=== PATIENT | female | born 1980 | race Two or more races ===

== ENCOUNTER → 2023-05-19 | Outpatient (CLI) | payer MEDICAID | END | disposition home or self-care (01) | LOC: LAB 08:37 | PROVIDERS: ATTEND Obstetrics & Gynecology | DX: N85.8 Other specified noninflammatory disorders of uterus (principal) ==

== ENCOUNTER → 2023-07-27 | Day surgery (SDC) | payer MEDICAID ==
[2023-07-26 11:54] LABS: Basophils # (auto) 0.1 10 ^3/uL (0-0.2); Eosinophils # (auto) 0.1 10 ^3/uL (0-0.8); Hematocrit 30.7 % (36.0-46.0); Hemoglobin 9.6 g/dL (12.2-16.2); Lymphocytes # (auto) 1.6 10 ^3/uL (0.4-5.4); Lymphocytes % (auto) 37.9 % (10.0-50.0); Monocytes # (auto) 0.5 10 ^3/uL (0-1.3); Red Cell Distribution Width 16.9 % (11.8-14.3); White Blood Cell 4.3 10^3/uL (4.4-10.8)
[2023-07-26 11:56] LABS: Basophils % (auto) 1.7 % (0.0-2.0); Eosinophils % (auto) 2.3 % (0.0-7.0); Mean Corpuscular Hemoglobin 22.6 pg (28.0-32.0); Mean Corpuscular Hgb Conc. 31.2 g/dL (32.0-36.0); Mean Corpuscular Volume 72.6 fL (80.0-100.0); Monocytes % (auto) 10.5 % (0.0-12.0); Neutrophils % (auto) 47.6 % (37.0-80.0); Red Blood Cells 4.22 10^6/uL (4.0-5.20)
[2023-07-26 12:22] LABS: Alanine Aminotransferase 11 U/L (7-40); Albumin 4.1 g/dL (3.2-4.8); Alkaline Phosphatase 65 U/L (46-116); Anion Gap 7 (5-15); Aspartate Aminotransferase 19 U/L (13-40); BUN/Creatinine Ratio 18.8 (10.0-20.0); Bilirubin, Total 0.5 mg/dL (0.2-1.0); Blood Urea Nitrogen 12 mg/dL (9-23); Calcium 9.3 mg/dL (8.5-10.1); Carbon Dioxide 26 mmol/L (20-30); Chloride 108 mmol/L (98-107); Glucose 85 mg/dL (74-106); Potassium 4.5 mmol/L (3.5-5.1); Sodium 141 mmol/L (136-145)
[2023-07-26 12:23] LABS: Total Protein 6.5 g/dL (5.7-8.2)
[2023-07-26 12:33] LABS: INR 0.98 (0.9-1.15); Partial Thromboplastin Time 22.8 SEC (24.5-34.5); Prothrombin Time 10.3 sec (9.3-11.8)
[2023-07-26 12:56] LABS: Urine Bacteria NONE SEEN /hpf (None Seen); Urine Blood Negative /uL (Negative); Urine Clarity Clear (Clear); Urine Color Yellow (Yellow); Urine Protein, UAD Negative (Negative); Urine Specific Gravity 1.021 (1.001-1.035); Urine Urobilinogen Normal (Negative); Urine WBC <1 /hpf (0 - 5)
[~2023-07-27] VITALS: Ht 170.2 cm; Wt 78.0 kg
[~2023-07-27] MED LIST: DexAMETHasone SOD PHOS 10MG/1ML VIAL INJ ONE; HYDROmorphone HCL 2 MG/ML VL/or syr IV PRN; IBUP-1455 PO; KETAMINE 50mg/ML 1ml syringe ONE; MEPERIDINE HCL (50 MG/ML) 1 ML VIAL ONE; METOCLOPRAMIDE HCL 5MG/ml INJ 2ml VIAL IV PRN; MIDAZOLAM HCL 2MG/2ML 2ml VIAL (1mg/ml) ONE; MORPHINE SULFATE INJ 2 MG/ml SYRG IV PRN; ONDANSETRON HCL 4 MG/2 ML VIAL ONE; PROPOFOL 10 MG/ML 20 ML IV ONE; SODIUM CHLORIDE LOCK 10 ML ONE; ceFAZolin 2 GM/D5W50ml 50 ML IV ONE; fentaNYL CITRATE 100 MCG/2 ML VL ONE
[2023-07-27 09:42] VITALS: TEMP 97.3; O2SAT 100
[2023-07-27 10:51] VITALS: BP 126/42; PULSE 81; RESP 11; O2SAT 99
== END | disposition home or self-care (01) ==
LOC: SUR 07:23
PROVIDERS: ATTEND Obstetrics & Gynecology
DX: N92.0 Excessive and frequent menstruation with regular cycle (principal); D64.9 Anemia, unspecified; Z98.891 History of uterine scar from previous surgery; Z98.51 Tubal ligation status; Z98.84 Bariatric surgery status; Z98.890 Other specified postprocedural states
CPT/HCPCS: 36415; 58563; 80053; 81001; 81025; 84702; 85025; 85610; 85730; 86850; 86900; 86901; J0690; J1100; J2175; J2250; J2405; J2704; J3010

== ENCOUNTER 2024-02-13 16:12 | Inpatient (IN) | payer MEDICAID ==
[~2024-02-13] VITALS: Ht 170.2 cm; Wt 81.0 kg
[~2024-02-13 16:12] MED LIST changes: -DexAMETHasone SOD PHOS 10MG/1ML VIAL INJ ONE; -HYDROmorphone HCL 2 MG/ML VL/or syr IV PRN; -KETAMINE 50mg/ML 1ml syringe ONE; -MEPERIDINE HCL (50 MG/ML) 1 ML VIAL ONE; -METOCLOPRAMIDE HCL 5MG/ml INJ 2ml VIAL IV PRN; -MIDAZOLAM HCL 2MG/2ML 2ml VIAL (1mg/ml) ONE; -MORPHINE SULFATE INJ 2 MG/ml SYRG IV PRN; -ONDANSETRON HCL 4 MG/2 ML VIAL ONE; -PROPOFOL 10 MG/ML 20 ML IV ONE; -SODIUM CHLORIDE LOCK 10 ML ONE; -ceFAZolin 2 GM/D5W50ml 50 ML IV ONE; -fentaNYL CITRATE 100 MCG/2 ML VL ONE
[2024-02-13 18:27] LABS: Basophils # (auto) 0.1 10 ^3/uL (0-0.2); Eosinophils # (auto) 0.1 10 ^3/uL (0-0.8); Eosinophils % (auto) 0.9 % (0.0-7.0); Hematocrit 30.8 % (36.0-46.0); Hemoglobin 9.9 g/dL (12.2-16.2); Lymphocytes # (auto) 1.7 10 ^3/uL (0.4-5.4); Lymphocytes % (auto) 26.1 % (10.0-50.0); Mean Corpuscular Hemoglobin 23.9 pg (28.0-32.0); Mean Corpuscular Hgb Conc. 32.1 g/dL (32.0-36.0); Mean Corpuscular Volume 74.3 fL (80.0-100.0); Monocytes # (auto) 0.6 10 ^3/uL (0-1.3); Monocytes % (auto) 9.7 % (0.0-12.0); Neutrophils # (auto) 4.2 10 ^3/uL (1.6-8.6); Neutrophils % (auto) 62.3 % (37.0-80.0); Platelet Count (auto) 279 10^3/uL (140-450); Red Blood Cells 4.15 10^6/uL (4.0-5.20); Red Cell Distribution Width 17.5 % (11.8-14.3); White Blood Cell 6.7 10^3/uL (4.4-10.8)
[2024-02-13 18:28] LABS: Chloride 110 mmol/L (98-107); Potassium 3.6 mmol/L (3.5-5.1); Sodium 142 mmol/L (136-145)
[2024-02-13 18:29] LABS: Anion Gap 5 (5-15); Calcium 8.8 mg/dL (8.7-10.4); Carbon Dioxide 27 mmol/L (20-30)
[2024-02-13 18:34] LABS: BUN/Creatinine Ratio 22.4 (10.0-20.0); Blood Urea Nitrogen 13 mg/dL (9-23); Glucose 89 mg/dL (74-106)
[2024-02-13 20:38] VITALS: PULSE 75; RESP 18; O2SAT 100
[2024-02-13 22:09] LABS: Urine Amorphous Crystal FEW /hpf (None Seen); Urine Bacteria FEW /hpf (None Seen); Urine Blood Negative /uL (Negative); Urine Clarity Turbid (Clear); Urine Color Yellow (Yellow); Urine Mucus FEW (None Seen); Urine Protein, UAD TRACE (Negative); Urine Specific Gravity 1.029 (1.001-1.035); Urine Urobilinogen 2 mg/dL (Negative); Urine WBC 3 /hpf (0 - 5); Urine pH 7.5 (5.0-9.0)
[2024-02-13] MEDS ORDERED: MORPHINE SULFATE INJ 2 MG/ml SYRG IV PRN (22:15)
[2024-02-13] MEDS ORDERED: ONDANSETRON HCL 4 MG/2 ML VIAL IV PRN (22:15)
[2024-02-13] MEDS ORDERED: NITROGLYCERIN 0.4 MG SL TAB SL PRN (22:15)
[2024-02-13] MEDS ORDERED: DOCUSATE SOD 100 MG CAP PO PRN (22:15)
[2024-02-14] VITALS (8 sets, daily range): BP systolic 98–101; BP diastolic 53–68; PULSE 62–78; RESP 16–18; TEMP 98–98.6; O2SAT 96–100
[2024-02-14] MEDS: MORPHINE SULFATE INJ 2 MG/ml SYRG IV PRN (00:10)
[2024-02-14 04:22] LABS: Basophils # (auto) 0.1 10 ^3/uL (0-0.2); Basophils % (auto) 1.1 % (0.0-2.0); Eosinophils # (auto) 0.1 10 ^3/uL (0-0.8); Mean Corpuscular Hemoglobin 24.1 pg (28.0-32.0); Neutrophils # (auto) 3.3 10 ^3/uL (1.6-8.6)
[2024-02-14 04:23] LABS: Hematocrit 28.9 % (36.0-46.0); Hemoglobin 9.3 g/dL (12.2-16.2); Lymphocytes # (auto) 2.2 10 ^3/uL (0.4-5.4); Lymphocytes % (auto) 33.9 % (10.0-50.0); Mean Corpuscular Hgb Conc. 32.3 g/dL (32.0-36.0); Mean Corpuscular Volume 74.5 fL (80.0-100.0); Monocytes # (auto) 0.8 10 ^3/uL (0-1.3); Monocytes % (auto) 12.1 % (0.0-12.0); Neutrophils % (auto) 50.9 % (37.0-80.0); Platelet Count (auto) 252 10^3/uL (140-450); Red Blood Cells 3.87 10^6/uL (4.0-5.20); White Blood Cell 6.5 10^3/uL (4.4-10.8)
[2024-02-14 04:32] LABS: Alanine Aminotransferase 16 U/L (7-40); Albumin 3.4 g/dL (3.2-4.8); Alkaline Phosphatase 71 U/L (46-116); Anion Gap 5 (5-15); Aspartate Aminotransferase 13 U/L (13-40); BUN/Creatinine Ratio 19.3 (10.0-20.0); Bilirubin, Total 0.3 mg/dL (0.2-1.0); Blood Urea Nitrogen 11 mg/dL (9-23); Calcium 8.6 mg/dL (8.7-10.4); Carbon Dioxide 25 mmol/L (20-30); Chloride 112 mmol/L (98-107); Glucose 89 mg/dL (74-106); Potassium 3.4 mmol/L (3.5-5.1); Sodium 142 mmol/L (136-145); Total Protein 5.7 g/dL (5.7-8.2)
[2024-02-14] MEDS: ZINC SULFATE 220mg CAP or TAB PO SCH (09:21)
[2024-02-14] MEDS: ASCORBIC ACID 500 MG TAB PO SCH (09:21)
[2024-02-14] MEDS: MULTIPLE VITAMIN TAB PO SCH (09:21)
[2024-02-14] MEDS: HYDROcodone-ACET 5/325MG TAB PO PRN (12:14)
[2024-02-14] MEDS ORDERED: KETOROLAC TROMETH 30 MG/ML 1ML VIAL IV ONE (14:45)
[2024-02-14] MEDS: TEMAZEPAM 15 MG CAP PO PRN (22:00)
[2024-02-15] VITALS (9 sets, daily range): BP systolic 93–114; BP diastolic 53–62; PULSE 59–81; RESP 15–18; TEMP 97.6–98.4; O2SAT 97–99
[2024-02-15] MEDS ORDERED: MECLIZINE HCL 25 MG TAB PO PRN (13:45)
[2024-02-16 01:00] VITALS: BP 145/61; PULSE 60; RESP 16; TEMP 97.9; O2SAT 98
[2024-02-16 05:00] VITALS: BP 99/59; PULSE 62; RESP 16; TEMP 98.4; O2SAT 99
[2024-02-16 08:00] VITALS: PULSE 67
[2024-02-16 09:00] VITALS: BP 103/42; PULSE 64; RESP 14; TEMP 98.4; O2SAT 99
[2024-02-16 12:58] VITALS: BP 102/58; PULSE 65; RESP 16; TEMP 98.5; O2SAT 97
[2024-02-16] MEDS: ACETAMINOPHEN 325 MG TAB PO PRN (14:17)
[2024-02-16] MEDS ORDERED: SUMA50TA2 PO (15:26)
[2024-02-16] MEDS ORDERED: FER325T PO (15:27)
[2024-02-16 17:00] VITALS: BP 97/50; PULSE 70; RESP 16; TEMP 99; O2SAT 98
== END 2024-02-16 18:27 | disposition home or self-care (01) | DRG 54 ==
LOC: ER 16:12 → TELE 22:06 → TELE-WESTW 02-14 08:47
PROVIDERS: ADMIT Internal Medicine; ATTEND Internal Medicine
DX: G43.909 Migraine, unspecified, not intractable, without status migrainosus (principal); G93.0 Cerebral cysts
CPT/HCPCS: 36415; 70450; 70551; 80048; 80053; 81001; 85025; 93005; G0378